=== PATIENT | male | born 1955 | race Two or more races ===

== ENCOUNTER 2022-08-31 14:24 | Emergency (ER) | payer OTHER ==
[~2022-08-31] VITALS: Ht 177.8 cm; Wt 91.4 kg
[2022-08-31 15:48] LABS: Basophils # (auto) 0 10 ^3/uL (0-0.2); Basophils % (auto) 0.7 % (0.0-2.0); Eosinophils # (auto) 0.1 10 ^3/uL (0-0.8); Eosinophils % (auto) 1.2 % (0.0-7.0); Hematocrit 43.2 % (41.0-53.0); Lymphocytes # (auto) 1.8 10 ^3/uL (0.4-5.4); Lymphocytes % (auto) 25.9 % (10.0-50.0); Mean Corpuscular Hemoglobin 29.4 pg (28.0-32.0); Mean Corpuscular Hgb Conc. 34.8 g/dL (32.0-36.0); Mean Corpuscular Volume 84.4 fL (80.0-100.0); Monocytes # (auto) 0.7 10 ^3/uL (0-1.3); Monocytes % (auto) 9.2 % (0.0-12.0); Neutrophils # (auto) 4.4 10 ^3/uL (1.6-8.6); Nucleated Red Blood Cells % 0.9 %; Red Blood Cells 5.12 10^6/uL (4.5-5.90); Red Cell Distribution Width 13.5 % (11.8-14.3)
[2022-08-31 15:58] LABS: Albumin 3.6 g/dL (3.4-5.0); BUN/Creatinine Ratio 15.2 (10.0-20.0); Calcium 9.1 mg/dL (8.5-10.1); Potassium 3.5 mmol/L (3.5-5.1)
[2022-08-31 16:02] LABS: Bilirubin, Total 0.4 mg/dL (0.2-1.0); Total Protein 7.6 g/dL (6.4-8.2)
[2022-08-31 17:01] VITALS: BP 184/105
== END 2022-08-31 17:10 | disposition home or self-care (01) ==
LOC: ER 14:24
DX: H53.8 Other visual disturbances (principal)
CPT/HCPCS: 36415; 70450; 80053; 82962; 84484; 85025

== ENCOUNTER 2023-12-08 16:16 | Emergency (ER) | payer OTHER ==
[~2023-12-08] VITALS: Ht 175.3 cm; Wt 75.0 kg
[2023-12-08] MEDS: cloNIDine HCL 0.1 MG TAB PO ONE (17:40)
[2023-12-08 18:20] LABS: Basophils # (auto) 0.1 10 ^3/uL (0-0.2); Basophils % (auto) 0.8 % (0.0-2.0); Eosinophils # (auto) 0 10 ^3/uL (0-0.8); Eosinophils % (auto) 0.6 % (0.0-7.0); Hematocrit 44.7 % (41.0-53.0); Hemoglobin 15.4 g/dL (13.5-17.5); Lymphocytes # (auto) 1.4 10 ^3/uL (0.4-5.4); Lymphocytes % (auto) 22.8 % (10.0-50.0); Mean Corpuscular Hemoglobin 29.7 pg (28.0-32.0); Mean Corpuscular Hgb Conc. 34.4 g/dL (32.0-36.0); Mean Corpuscular Volume 86.3 fL (80.0-100.0); Monocytes # (auto) 0.7 10 ^3/uL (0-1.3); Monocytes % (auto) 10.7 % (0.0-12.0); Neutrophils % (auto) 65.1 % (37.0-80.0); Nucleated Red Blood Cells % 0.1 %; Red Blood Cells 5.18 10^6/uL (4.5-5.90); White Blood Cell 6.2 10^3/uL (4.4-10.8)
[2023-12-08 18:29] LABS: Alanine Aminotransferase 79 U/L (7-40); Albumin 4.6 g/dL (3.2-4.8); Alkaline Phosphatase 104 U/L (46-116); Anion Gap 9 (5-15); Aspartate Aminotransferase 65 U/L (13-40); Blood Urea Nitrogen 16 mg/dL (9-23); Calcium 9.7 mg/dL (8.7-10.4); Carbon Dioxide 27 mmol/L (20-30); Chloride 108 mmol/L (98-107); Glucose 134 mg/dL (74-106); Potassium 3.2 mmol/L (3.5-5.1); Sodium 144 mmol/L (136-145)
[2023-12-08 18:30] LABS: Bilirubin, Total 0.9 mg/dL (0.2-1.0); Total Protein 7.7 g/dL (5.7-8.2)
[2023-12-08] MEDS ORDERED: AMLO1TAB22 PO (20:20)
[2023-12-08 22:17] VITALS: BP 166/101; PULSE 71; RESP 15; TEMP 97.4; O2SAT 96
[2023-12-08] MEDS: POTASSIUM CHL 20 Meq TABLET PO ONE (22:26)
== END 2023-12-08 22:27 | disposition home or self-care (01) ==
LOC: ER 16:16
DX: I10 Essential (primary) hypertension (principal); Z86.73 Personal history of transient ischemic attack (TIA), and cerebral infarction without residual deficits; Z79.899 Other long term (current) drug therapy
CPT/HCPCS: 36415; 70450; 71046; 80053; 84484; 85025; 93005